=== PATIENT | female | born 1960 | race Caucasian/White ===

== ENCOUNTER 2017-01-31 05:25 | Day surgery (SDC) | payer OTHER ==
[~2017-01-31] VITALS: Ht 165.1 cm; Wt 87.6 kg
[~2017-01-31 05:25] MED LIST: ADVIL200 M3 PO
[2017-02-01] MEDS ORDERED: IBUPROFEN800 M1 PO (11:02)
[2017-02-01] MEDS ORDERED: PERCOCET 5-3251 EACH PO (11:04)
== END 2017-02-01 12:35 ==
LOC: SHSA 05:25 → WSU 05:25 → ORW 07:28 → PACU 09:28 → OBGF 10:45 → WSU 02-01 12:35
PROC: 0TSD0ZZ Reposition Urethra, Open Approach (ICD-10-PCS; principal; 2017-01-31)
PROC: 0UT94ZZ Resection of Uterus, Percutaneous Endoscopic Approach (ICD-10-PCS; 2017-01-31)
PROC: 0UTC4ZZ Resection of Cervix, Percutaneous Endoscopic Approach (ICD-10-PCS; 2017-01-31)
PROC: 0UT24ZZ Resection of Bilateral Ovaries, Percutaneous Endoscopic Approach (ICD-10-PCS; 2017-01-31)
PROC: 0UT74ZZ Resection of Bilateral Fallopian Tubes, Percutaneous Endoscopic Approach (ICD-10-PCS; 2017-01-31)
PROC: 8E0W4CZ Robotic Assisted Procedure of Trunk Region, Percutaneous Endoscopic Approach (ICD-10-PCS; 2017-01-31)
DX: N39.3 Stress incontinence (female) (male) (principal); D27.1 Benign neoplasm of left ovary; E78.00 Pure hypercholesterolemia, unspecified; E55.9 Vitamin D deficiency, unspecified; Z79.1 Long term (current) use of non-steroidal anti-inflammatories (NSAID); Z87.891 Personal history of nicotine dependence
CPT/HCPCS: C1771; J0690; J1170; J2175; J2270; J3010; J7030; J7121